=== PATIENT | female | born 1995 | race African-American/Black ===

== ENCOUNTER 2018-05-10 16:07 | Emergency (ER) | payer MEDICAID ==
[~2018-05-10] VITALS: Ht 167.6 cm; Wt 88.0 kg
[2018-05-10] MEDS ORDERED: SODIUM CHLORIDE 0.9% 1,000 ML IV SCH (16:36)
[2018-05-10] MEDS ORDERED: ONDANSETRON HCL 4MG/2ML INJ IV ONE (16:45)
[2018-05-10] MEDS ORDERED: METHYLPREDNISOLONE SOD SUCC 125 MG/2 ML VIAL IV ONE (16:45)
[2018-05-10] MEDS ORDERED: DIPHENHYDRAMINE 50MG/ML VIAL IV ONE (16:45)
[2018-05-10] MEDS ORDERED: FAMOTIDINE 20MG/2ML VIAL IV ONE (16:45)
[2018-05-10 19:53] VITALS: BP 104/75
== END 2018-05-10 19:55 | disposition home or self-care (01) ==
LOC: ER 16:56
DX: L50.9 Urticaria, unspecified (principal)
CPT/HCPCS: 96374; 96375; 99285; J1200; J2405; J2930; J3490; J7030; Z7610